=== PATIENT | female | born 1960 | race Caucasian/White ===

== ENCOUNTER 2021-01-11 18:37 | Emergency (ER) | payer OTHER ==
[~2021-01-11] VITALS: Ht 160 cm; Wt 77.3 kg
[2021-01-11 18:55] VITALS: BP 144/78
[2021-01-11] MEDS ORDERED: LORA10TA7 PO (19:01)
[2021-01-11] MEDS ORDERED: AMLO-258 PO (19:01)
== END 2021-01-11 22:28 | disposition home or self-care (01) ==
LOC: EMS 18:44
DX: T78.49XA Other allergy, initial encounter (principal); E11.9 Type 2 diabetes mellitus without complications; I10 Essential (primary) hypertension; Y92.89 Other specified places as the place of occurrence of the external cause
CPT/HCPCS: 99281; Z7502